=== PATIENT | female | born 1960 | race Caucasian/White ===

== ENCOUNTER 2021-03-22 13:47 | Emergency (ER) | payer MEDICAID ==
[~2021-03-22] VITALS: Ht 144.8 cm; Wt 77.1 kg
[2021-03-22 13:55] VITALS: BP 133/74
--- NOTE | 2021-03-22 14:04 | NUR ---
PT SEEN BY DR. LAW CORMIER
[2021-03-22] MEDS ORDERED: KETOROLAC TROMETHAMINE INJ 30 MG/ML VIAL ONE (14:14)
--- NOTE | 2021-03-22 14:15 | NUR ---
AIR INTERCEPT [employer]OLLER AT BEDSIDE
[2021-03-22] MEDS ORDERED: KETOROLAC TROMETHAMINE INJ 30 MG/ML VIAL IM ONE (14:30)
[2021-03-22] MEDS ORDERED: IBUP-1957 PO (14:41)
[2021-03-22] MEDS ORDERED: OXYC-128 PO (14:41)
--- NOTE | 2021-03-22 14:51 | NUR ---
Patient discharged to home in stable condition. Written and verbal after care instructions given. Patient verbalizes understanding of instruction.
== END 2021-03-22 14:51 | disposition home or self-care (01) ==
LOC: ER 13:54
DX: S52.612A Displaced fracture of left ulna styloid process, initial encounter for closed fracture (principal); M25.512 Pain in left shoulder; X58.XXXA Exposure to other specified factors, initial encounter; Y93.89 Activity, other specified; Y92.89 Other specified places as the place of occurrence of the external cause; Y99.8 Other external cause status
CPT/HCPCS: 73030; 73110; 96372; 99284; J1885

== ENCOUNTER 2021-09-04 17:19 | Emergency (ER) | payer MEDICAID, OTHER ==
[~2021-09-04] VITALS: Ht 152.4 cm; Wt 72.6 kg
[~2021-09-04 17:19] MED LIST: IBUP-1957 PO; OXYC-128 PO
[2021-09-04 18:27] VITALS: BP 155/98
--- NOTE | 2021-09-04 18:30 | NUR ---
Note yeyo in EDM - 09/04/21 at 1911 by RENNY The patient bibs for c/o "Knee hurts -dont know why." Demies any injury/trauma. Rates pain 11/10. Will continue to monitor the patient.
--- NOTE | 2021-09-04 18:30 | NUR ---
The patient bibs for c/o "Knee hurts -dont know why." Denies any injury/trauma. Rates pain 11/10. Will continue to monitor the patient.
[2021-09-04] MEDS ORDERED: KETOROLAC TROMETHAMINE 15 MG/ML VIAL ONE (19:04)
[2021-09-04] MEDS: KETOROLAC TROMETHAMINE INJ 30 MG/ML VIAL IM ONE (19:08)
[2021-09-04] MEDS ORDERED: IBUP-1955 PO (20:42)
--- NOTE | 2021-09-04 21:01 | NUR ---
Patient discharged to home in stable condition. Written and verbal after care instructions given. Patient verbalizes understanding of instruction. PT ambulatory with a steady gait
--- NOTE | 2021-09-04 21:02 | NUR ---
JACKIE WRAP APPLIED TO AFFECTED LEG
== END 2021-09-04 21:03 | disposition home or self-care (01) ==
LOC: ER 17:25
DX: M25.561 Pain in right knee (principal); R60.9 Edema, unspecified; Z79.899 Other long term (current) drug therapy
CPT/HCPCS: 73564; 93970; 96372; 99284; J1885